=== PATIENT | female | born 1955 | race Caucasian/White ===

== ENCOUNTER 2017-12-23 17:20 | Inpatient (IN) | payer BC ==
[~2017-12-23] VITALS: Ht 172.7 cm; Wt 63.5 kg
[2017-12-23 17:20] VITALS: BP_SYST 123
[~2017-12-23 17:20] MED LIST: BUPIVACAINE /PF 0.75% 10 ML VIAL INJ ONE; CEFAZOLIN 2 GM IVPB PREMIX 50 ML IV ONE; FUROSEMIDE 20 MG/2 ML VIAL IVP ONE; LIDOCAINE 1% 10 MG/ML, 20 ML MDV INJ ONE; MIDAZOLAM HCL 5 MG/5 ML VIAL IVP ONE; ONDANSETRON HCL 4 MG/2 ML VIAL IVP ONE; PROPOFOL 200MG/ 20ML VIAL (DIPRIVAN) IV ONE
[2017-12-23] MEDS ORDERED: NACL 0.9% 1,000 ML IV ONE (17:22)
[2017-12-23] MEDS ORDERED: MORPHINE 4 MG/ML INJ. SYRINGE IVP ONE (17:30)
[2017-12-23] MEDS ORDERED: ONDANSETRON HCL 4 MG/2 ML VIAL IVP ONE (17:30)
[2017-12-23 17:47] LABS: BASOPHILS % (AUTO) 0.5 % (0.0-2.0); EOSINOPHILS # (AUTO) 0.1 K/uL (0.0-0.4); EOSINOPHILS % (AUTO) 1.5 % (0.0-4.0); HEMATOCRIT 39.4 % (36-48); HEMOGLOBIN 12.5 g/dL (12.0-16.0); LYMPHOCYTES # (AUTO) 2.3 K/uL (1.0-5.5); LYMPHOCYTES % (AUTO) 26.6 % (20.5-51.5); MEAN CORPUSCULAR HEMOGLOBIN 25 pg (27-31); MEAN CORPUSCULAR HGB CONC 32 % (32-36); MEAN CORPUSCULAR VOLUME 80 fL (79.0-98.0); MONOCYTES # (AUTO) 0.8 K/uL (0.0-1.0); MONOCYTES % (AUTO) 9.2 % (1.7-9.3); NEUTROPHILS # (AUTO) 5.3 K/uL (1.8-7.7); NEUTROPHILS % (AUTO) 62.2 % (40.0-70.0); PLATELET COUNT (AUTO) 383 K/uL (130-430); RED BLOOD CELL COUNT(AUTO) 4.94 MIL/uL (4.2-6.2); WHITE BLOOD COUNT (AUTO) 8.5 K/uL (4.8-10.8)
[2017-12-23 18:02] LABS: CALCIUM 9.1 mg/dL (8.4-11.0); CREATININE 1.02 mg/dL (0.55-1.30); POTASSIUM 3.9 mmol/L (3.5-5.1)
[2017-12-23 18:07] LABS: ALBUMIN 3.7 g/dL (3.4-4.8); TOTAL BILIRUBIN 0.4 mg/dL (0.0-1.0)
[2017-12-23 18:26] LABS: PROTHROMBIN TIME 10.4 SECS (9.5-12.5)
[2017-12-23 18:26] LABS: BILIRUBIN,URINE NEGATIVE (NEGATIVE); CLARITY/URINE CLEAR (CLEAR); COLOR,URINE YELLOW (YELLOW); GLUCOSE,URINE NEGATIVE (NEGATIVE); KETONES,URINE TRACE (NEGATIVE); LEUKOCYTE ESTERASE ,URINE NEGATIVE (NEGATIVE); NITRITE, URINE NEGATIVE (NEGATIVE); PH,URINE 5.5 (5.0-8.0); PROTEIN URINE NEGATIVE (NEGATIVE); UROBILINOGEN,URINE 0.2 (0.2-1.0)
[2017-12-23 18:29] LABS: BLOOD, URINE TRACE (NEGATIVE)
[2017-12-23 18:47] LABS: BACTERIA,URINE FEW /HPF (None Seen); MUCUS,URINE 3+ /LPF (None Seen); WBC,URINE 0-3 /HPF (0-3)
[2017-12-23] MEDS ORDERED: ONDANSETRON HCL 4 MG/2 ML VIAL IVP PRN (20:30)
[2017-12-23] MEDS ORDERED: ACETAMINOPHEN 325 MG TABLET PO PRN (20:30)
[2017-12-23 20:55] VITALS: BP_SYST 139
[2017-12-23] MEDS: MORPHINE 4 MG/ML INJ. SYRINGE IVP PRN (21:02)
[2017-12-23] MEDS ORDERED: DIGO-31 PO (21:17)
[2017-12-23] MEDS ORDERED: LISI-600 PO (21:17)
[2017-12-23] MEDS ORDERED: APIX5TAB4 PO (21:17)
[2017-12-23] MEDS ORDERED: METO50TA7 PO (21:17)
[2017-12-23] MEDS ORDERED: MORPHINE 4 MG/ML INJ. SYRINGE IVP SCH (22:00)
[2017-12-24] VITALS (12 sets, daily range): BP systolic 112–134
[2017-12-24] MEDS: MORPHINE 4 MG/ML INJ. SYRINGE IVP PRN ×4 (02:52→12:40)
[2017-12-24 06:20] LABS: BASOPHILS % (AUTO) 0.4 % (0.0-2.0); EOSINOPHILS % (AUTO) 0.3 % (0.0-4.0); HEMATOCRIT 35.1 % (36-48); HEMOGLOBIN 11.9 g/dL (12.0-16.0); LYMPHOCYTES # (AUTO) 1.5 K/uL (1.0-5.5); LYMPHOCYTES % (AUTO) 14.2 % (20.5-51.5); MEAN CORPUSCULAR HEMOGLOBIN 27 pg (27-31); MEAN CORPUSCULAR HGB CONC 34 % (32-36); MEAN CORPUSCULAR VOLUME 80 fL (79.0-98.0); MONOCYTES # (AUTO) 0.7 K/uL (0.0-1.0); MONOCYTES % (AUTO) 6.8 % (1.7-9.3); NEUTROPHILS # (AUTO) 8.7 K/uL (1.8-7.7); NEUTROPHILS % (AUTO) 78.3 % (40.0-70.0); PLATELET COUNT (AUTO) 323 K/uL (130-430); RED CELL DISTRIBUTION WIDTH 13.2 % (9.0-15.0)
[2017-12-24 06:57] LABS: ALBUMIN 3.1 g/dL (3.4-4.8); CALCIUM 8.4 mg/dL (8.4-11.0); CREATININE 1.07 mg/dL (0.55-1.30); FREE T4 (FREE THYROXINE) 0.6 ng/dL (0.6-1.6); POTASSIUM 4.4 mmol/L (3.5-5.1); THYROID STIMULATING HORMONE 0.68 uIu/mL (0.34-4.82); TOTAL BILIRUBIN 0.4 mg/dL (0.0-1.0)
[2017-12-24 07:01] LABS: WHITE BLOOD COUNT (AUTO) 10.9 K/uL (4.8-10.8)
[2017-12-24] MEDS: DIGOXIN 0.125 MG TABLET PO SCH (09:04)
[2017-12-24] MEDS: LISINOPRIL 20 MG TABLET PO SCH (09:04)
[2017-12-24] MEDS: METOPROLOL SUCCINATE 50 MG TAB.SR.24H (TOPROL XL) PO SCH (09:04)
[2017-12-24] MEDS ORDERED: POLYMYXIN 500,000/BACIT.10,000 UNITS in NS IRR 1 L IR ONE (14:49)
[2017-12-24] MEDS ORDERED: LR 1,000 ML IV SCH (16:29)
[2017-12-24] MEDS ORDERED: METOCLOPRAMIDE HCL 10 MG/2 ML VIAL IVP PRN (16:30)
[2017-12-24] MEDS ORDERED: MORPHINE 4 MG/ML INJ. SYRINGE IVP PRN ×3 (16:30)
[2017-12-24] MEDS ORDERED: DIPHENHYDRAMINE INJ 50 MG/ML VIAL IVP PRN ×2 (18:00→18:15)
[2017-12-24] MEDS ORDERED: ONDANSETRON HCL 4 MG/2 ML VIAL IVP PRN (18:00)
[2017-12-24] MEDS ORDERED: DIPHENHYDRAMINE HCL 25 MG CAPSULE PO PRN ×2 (18:00→18:15)
[2017-12-24] MEDS ORDERED: MILK OF MAGNESIA 30 ML UDC PO PRN (18:15)
[2017-12-24] MEDS: ONDANSETRON HCL 4 MG/2 ML VIAL IVP PRN (19:33)
[2017-12-24] MEDS: KETOROLAC TROMETHAMINE 15 MG VIAL IVP SCH ×2 (19:44→23:45)
[2017-12-24] MEDS ORDERED: KETOROLAC TROMETHAMINE 15 MG VIAL ONE (19:45)
[2017-12-24] MEDS: SENNOSIDES 8.6 MG TABLET PO SCH (20:25)
[2017-12-24] MEDS: D5LR 1,000 ML IV SCH (23:44)
[2017-12-25] VITALS (16 sets, daily range): BP systolic 90–132
[2017-12-25] MEDS: ONDANSETRON HCL 4 MG/2 ML VIAL IVP PRN ×3 (03:08→23:32)
[2017-12-25] MEDS: MORPHINE 2 MG/ML INJ. SYRINGE IVP PRN ×2 (04:23→23:32)
[2017-12-25] MEDS: ACETAMINOPHEN 325 MG TABLET PO PRN ×3 (05:04→17:41)
[2017-12-25] MEDS: KETOROLAC TROMETHAMINE 15 MG VIAL IVP SCH (06:48)
[2017-12-25 06:52] LABS: EOSINOPHILS # (AUTO) 0.1 K/uL (0.0-0.4); EOSINOPHILS % (AUTO) 0.9 % (0.0-4.0); HEMATOCRIT 35.4 % (36-48); HEMOGLOBIN 11.6 g/dL (12.0-16.0); LYMPHOCYTES # (AUTO) 0.7 K/uL (1.0-5.5); LYMPHOCYTES % (AUTO) 6.5 % (20.5-51.5); MEAN CORPUSCULAR HEMOGLOBIN 26 pg (27-31); MEAN CORPUSCULAR HGB CONC 33 % (32-36); MEAN CORPUSCULAR VOLUME 79 fL (79.0-98.0); MONOCYTES # (AUTO) 1.1 K/uL (0.0-1.0); MONOCYTES % (AUTO) 9.9 % (1.7-9.3); NEUTROPHILS # (AUTO) 9.5 K/uL (1.8-7.7); NEUTROPHILS % (AUTO) 82.7 % (40.0-70.0); PLATELET COUNT (AUTO) 244 K/uL (130-430); RED BLOOD CELL COUNT(AUTO) 4.47 MIL/uL (4.2-6.2); RED CELL DISTRIBUTION WIDTH 13.4 % (9.0-15.0); WHITE BLOOD COUNT (AUTO) 11.4 K/uL (4.8-10.8)
[2017-12-25 06:53] LABS: CALCIUM 8.5 mg/dL (8.4-11.0); CREATININE 1.19 mg/dL (0.55-1.30); POTASSIUM 4.4 mmol/L (3.5-5.1)
[2017-12-25] MEDS: D5LR 1,000 ML IV SCH ×2 (08:35→13:47)
[2017-12-25] MEDS: LISINOPRIL 20 MG TABLET PO SCH (09:00)
[2017-12-25] MEDS: METOPROLOL SUCCINATE 50 MG TAB.SR.24H (TOPROL XL) PO SCH (09:00)
[2017-12-25] MEDS: ENOXAPARIN SODIUM 40 MG/0.4 ML SYRINGE SUBCUT SCH (10:06)
[2017-12-25] MEDS: DIGOXIN 0.125 MG TABLET PO SCH (10:06)
[2017-12-25] MEDS: PANTOPRAZOLE SODIUM 40 MG TAB PO SCH (10:06)
[2017-12-25] MEDS ORDERED: BISACODYL 5 MG TABLET.DR (DULCOLAX) PO PRN (19:00)
[2017-12-25] MEDS: NACL 0.9% 1,000 ML IV SCH (20:40)
[2017-12-25] MEDS: DOCUSATE SODIUM 250 MG CAPSULE PO SCH (20:40)
[2017-12-25] MEDS: SENNOSIDES 8.6 MG TABLET PO SCH (20:40)
[2017-12-26 00:32] VITALS: BP_SYST 128
[2017-12-26] MEDS ORDERED: METOPROLOL SUCCINATE 50 MG TAB.SR.24H (TOPROL XL) PO ONE (03:30)
[2017-12-26] MEDS ORDERED: DILTIAZEM HCL 25 MG/5 ML VIAL IVP ONE (03:30)
[2017-12-26] MEDS: MORPHINE 2 MG/ML INJ. SYRINGE IVP PRN (03:55)
[2017-12-26 06:39] LABS: CALCIUM 8.1 mg/dL (8.4-11.0); CREATININE 0.9 mg/dL (0.55-1.30); POTASSIUM 4.1 mmol/L (3.5-5.1)
[2017-12-26 06:42] LABS: BASOPHILS % (AUTO) 0.2 % (0.0-2.0); EOSINOPHILS # (AUTO) 0.1 K/uL (0.0-0.4); EOSINOPHILS % (AUTO) 1.1 % (0.0-4.0); HEMATOCRIT 28.9 % (36-48); HEMOGLOBIN 9.6 g/dL (12.0-16.0); LYMPHOCYTES % (AUTO) 9.6 % (20.5-51.5); MEAN CORPUSCULAR HEMOGLOBIN 27 pg (27-31); MEAN CORPUSCULAR HGB CONC 33 % (32-36); MEAN CORPUSCULAR VOLUME 80 fL (79.0-98.0); MONOCYTES # (AUTO) 0.9 K/uL (0.0-1.0); MONOCYTES % (AUTO) 8.6 % (1.7-9.3); NEUTROPHILS # (AUTO) 8.7 K/uL (1.8-7.7); NEUTROPHILS % (AUTO) 80.5 % (40.0-70.0); PLATELET COUNT (AUTO) 226 K/uL (130-430); RED CELL DISTRIBUTION WIDTH 12.9 % (9.0-15.0); WHITE BLOOD COUNT (AUTO) 10.7 K/uL (4.8-10.8)
[2017-12-26] MEDS: NACL 0.9% 1,000 ML IV SCH ×2 (07:15→17:21)
[2017-12-26 08:00] VITALS: BP_SYST 120
[2017-12-26] MEDS: DOCUSATE SODIUM 250 MG CAPSULE PO SCH ×2 (08:58→21:01)
[2017-12-26] MEDS: DIGOXIN 0.125 MG TABLET PO SCH (08:59)
[2017-12-26] MEDS: LISINOPRIL 20 MG TABLET PO SCH (08:59)
[2017-12-26] MEDS: PANTOPRAZOLE SODIUM 40 MG TAB PO SCH (08:59)
[2017-12-26] MEDS: ENOXAPARIN SODIUM 40 MG/0.4 ML SYRINGE SUBCUT SCH (09:00)
[2017-12-26] MEDS: METOPROLOL SUCCINATE 50 MG TAB.SR.24H (TOPROL XL) PO SCH (09:00)
[2017-12-26] MEDS: ONDANSETRON HCL 4 MG/2 ML VIAL IVP PRN (10:57)
[2017-12-26] MEDS: MORPHINE 4 MG/ML INJ. SYRINGE IVP PRN (10:57)
[2017-12-26] MEDS ORDERED: CHOLECALCIFEROL (VITAMIN D3) 2,000 UNIT TABLET PO ONE (12:15)
[2017-12-26] MEDS ORDERED: MULTIVITS,CA,MINERALS/IRON/FA 1 TABLET PO ONE (12:15)
[2017-12-26 12:22] VITALS: BP_SYST 129
[2017-12-26 16:28] VITALS: BP_SYST 126
[2017-12-26 19:45] VITALS: BP_SYST 123
[2017-12-26] MEDS: SENNOSIDES 8.6 MG TABLET PO SCH (21:01)
[2017-12-26] MEDS: MULTIVITS,CA,MINERALS/IRON/FA 1 TABLET PO SCH (21:01)
[2017-12-27 00:18] VITALS: BP_SYST 140
[2017-12-27] MEDS: ONDANSETRON HCL 4 MG/2 ML VIAL IVP PRN (01:34)
[2017-12-27] MEDS: MORPHINE 2 MG/ML INJ. SYRINGE IVP PRN ×3 (01:38→20:32)
[2017-12-27 06:29] LABS: BASOPHILS % (AUTO) 0.2 % (0.0-2.0); EOSINOPHILS # (AUTO) 0.3 K/uL (0.0-0.4); EOSINOPHILS % (AUTO) 2.6 % (0.0-4.0); HEMOGLOBIN 9.7 g/dL (12.0-16.0); LYMPHOCYTES # (AUTO) 1.5 K/uL (1.0-5.5); MEAN CORPUSCULAR HEMOGLOBIN 27 pg (27-31); MEAN CORPUSCULAR HGB CONC 33 % (32-36); MEAN CORPUSCULAR VOLUME 80 fL (79.0-98.0); MONOCYTES # (AUTO) 0.9 K/uL (0.0-1.0); NEUTROPHILS # (AUTO) 8.2 K/uL (1.8-7.7); NEUTROPHILS % (AUTO) 75.2 % (40.0-70.0); PLATELET COUNT (AUTO) 262 K/uL (130-430); RED BLOOD CELL COUNT(AUTO) 3.62 MIL/uL (4.2-6.2); RED CELL DISTRIBUTION WIDTH 13.2 % (9.0-15.0); WHITE BLOOD COUNT (AUTO) 10.9 K/uL (4.8-10.8)
[2017-12-27 06:35] LABS: CALCIUM 8.7 mg/dL (8.4-11.0); CREATININE 0.86 mg/dL (0.55-1.30); POTASSIUM 4.2 mmol/L (3.5-5.1)
[2017-12-27 08:30] VITALS: BP_SYST 118
[2017-12-27] MEDS: PANTOPRAZOLE SODIUM 40 MG TAB PO SCH (09:10)
[2017-12-27] MEDS: CHOLECALCIFEROL (VITAMIN D3) 2,000 UNIT TABLET PO SCH (09:11)
[2017-12-27] MEDS: MULTIVITS,CA,MINERALS/IRON/FA 1 TABLET PO SCH ×2 (09:11→20:28)
[2017-12-27] MEDS: DOCUSATE SODIUM 250 MG CAPSULE PO SCH ×2 (09:13→20:28)
[2017-12-27] MEDS: DIGOXIN 0.125 MG TABLET PO SCH (09:13)
[2017-12-27] MEDS: METOPROLOL SUCCINATE 50 MG TAB.SR.24H (TOPROL XL) PO SCH (09:14)
[2017-12-27] MEDS: LISINOPRIL 20 MG TABLET PO SCH (09:14)
[2017-12-27] MEDS: ENOXAPARIN SODIUM 40 MG/0.4 ML SYRINGE SUBCUT SCH (09:17)
[2017-12-27 09:51] VITALS: BP_SYST 118
[2017-12-27] MEDS ORDERED: MILK OF MAGNESIA 30 ML UDC PO PRN (10:00)
[2017-12-27] MEDS ORDERED: BISACODYL 5 MG TABLET.DR (DULCOLAX) PO ONE (10:00)
[2017-12-27 12:08] VITALS: BP_SYST 111
[2017-12-27 16:41] VITALS: BP_SYST 123
[2017-12-27 19:55] VITALS: BP_SYST 121
[2017-12-27] MEDS: SENNOSIDES 8.6 MG TABLET PO SCH (20:28)
[2017-12-28 00:19] VITALS: BP_SYST 116
[2017-12-28] MEDS: MORPHINE 2 MG/ML INJ. SYRINGE IVP PRN ×3 (01:40→11:23)
[2017-12-28 06:58] LABS: BASOPHILS # (AUTO) 0.1 K/uL (0.0-0.2); BASOPHILS % (AUTO) 0.7 % (0.0-2.0); EOSINOPHILS # (AUTO) 0.3 K/uL (0.0-0.4); EOSINOPHILS % (AUTO) 3.6 % (0.0-4.0); HEMOGLOBIN 9.1 g/dL (12.0-16.0); LYMPHOCYTES # (AUTO) 1.2 K/uL (1.0-5.5); LYMPHOCYTES % (AUTO) 14.4 % (20.5-51.5); MEAN CORPUSCULAR HEMOGLOBIN 27 pg (27-31); MEAN CORPUSCULAR HGB CONC 34 % (32-36); MEAN CORPUSCULAR VOLUME 80 fL (79.0-98.0); MONOCYTES # (AUTO) 0.7 K/uL (0.0-1.0); MONOCYTES % (AUTO) 8.7 % (1.7-9.3); NEUTROPHILS # (AUTO) 6.3 K/uL (1.8-7.7); NEUTROPHILS % (AUTO) 72.6 % (40.0-70.0); PLATELET COUNT (AUTO) 257 K/uL (130-430); RED BLOOD CELL COUNT(AUTO) 3.38 MIL/uL (4.2-6.2); RED CELL DISTRIBUTION WIDTH 12.9 % (9.0-15.0); WHITE BLOOD COUNT (AUTO) 8.6 K/uL (4.8-10.8)
[2017-12-28 07:13] LABS: CALCIUM 8.4 mg/dL (8.4-11.0); CREATININE 0.81 mg/dL (0.55-1.30); POTASSIUM 3.7 mmol/L (3.5-5.1)
[2017-12-28] MEDS: DIGOXIN 0.125 MG TABLET PO SCH (09:12)
[2017-12-28] MEDS: CHOLECALCIFEROL (VITAMIN D3) 2,000 UNIT TABLET PO SCH (09:13)
[2017-12-28] MEDS: LISINOPRIL 20 MG TABLET PO SCH (09:13)
[2017-12-28] MEDS: METOPROLOL SUCCINATE 50 MG TAB.SR.24H (TOPROL XL) PO SCH (09:13)
[2017-12-28] MEDS: DOCUSATE SODIUM 250 MG CAPSULE PO SCH ×2 (09:14→21:00)
[2017-12-28] MEDS: PANTOPRAZOLE SODIUM 40 MG TAB PO SCH (09:14)
[2017-12-28] MEDS: MULTIVITS,CA,MINERALS/IRON/FA 1 TABLET PO SCH ×2 (09:14→21:21)
[2017-12-28] MEDS: ENOXAPARIN SODIUM 40 MG/0.4 ML SYRINGE SUBCUT SCH (09:18)
[2017-12-28] MEDS ORDERED: DIGOXIN 0.5 MG/2 ML AMP IVP ONE (12:00)
[2017-12-28 12:36] VITALS: BP_SYST 100
[2017-12-28 16:03] VITALS: BP_SYST 110
[2017-12-28] MEDS: ACETAMINOPHEN 325 MG TABLET PO PRN (16:14)
[2017-12-28 19:55] VITALS: BP_SYST 96
[2017-12-28] MEDS: SENNOSIDES 8.6 MG TABLET PO SCH (21:00)
[2017-12-29] VITALS: BP_SYST 108
[2017-12-29] MEDS: MORPHINE 2 MG/ML INJ. SYRINGE IVP PRN (02:03)
[2017-12-29 06:33] LABS: BASOPHILS % (AUTO) 0.5 % (0.0-2.0); EOSINOPHILS # (AUTO) 0.4 K/uL (0.0-0.4); EOSINOPHILS % (AUTO) 5.3 % (0.0-4.0); HEMATOCRIT 29.2 % (36-48); HEMOGLOBIN 9.2 g/dL (12.0-16.0); LYMPHOCYTES # (AUTO) 1.5 K/uL (1.0-5.5); LYMPHOCYTES % (AUTO) 20.5 % (20.5-51.5); MEAN CORPUSCULAR HEMOGLOBIN 25 pg (27-31); MEAN CORPUSCULAR HGB CONC 31 % (32-36); MEAN CORPUSCULAR VOLUME 81 fL (79.0-98.0); MONOCYTES # (AUTO) 0.7 K/uL (0.0-1.0); MONOCYTES % (AUTO) 9.3 % (1.7-9.3); NEUTROPHILS # (AUTO) 4.8 K/uL (1.8-7.7); NEUTROPHILS % (AUTO) 64.4 % (40.0-70.0); PLATELET COUNT (AUTO) 360 K/uL (130-430); RED BLOOD CELL COUNT(AUTO) 3.63 MIL/uL (4.2-6.2); RED CELL DISTRIBUTION WIDTH 12.8 % (9.0-15.0); WHITE BLOOD COUNT (AUTO) 7.4 K/uL (4.8-10.8)
[2017-12-29 06:37] LABS: CALCIUM 8.7 mg/dL (8.4-11.0); CREATININE 0.89 mg/dL (0.55-1.30); POTASSIUM 3.5 mmol/L (3.5-5.1)
[2017-12-29 08:42] VITALS: BP_SYST 108
[2017-12-29] MEDS: CHOLECALCIFEROL (VITAMIN D3) 2,000 UNIT TABLET PO SCH (08:46)
[2017-12-29] MEDS: LISINOPRIL 20 MG TABLET PO SCH (08:47)
[2017-12-29] MEDS: DOCUSATE SODIUM 250 MG CAPSULE PO SCH ×2 (08:47→20:10)
[2017-12-29] MEDS: PANTOPRAZOLE SODIUM 40 MG TAB PO SCH (08:47)
[2017-12-29] MEDS: MULTIVITS,CA,MINERALS/IRON/FA 1 TABLET PO SCH ×2 (08:47→20:10)
[2017-12-29] MEDS: METOPROLOL SUCCINATE 50 MG TAB.SR.24H (TOPROL XL) PO SCH (08:48)
[2017-12-29] MEDS: DIGOXIN 0.5 MG/2 ML AMP IVP SCH (08:48)
[2017-12-29] MEDS: ENOXAPARIN SODIUM 40 MG/0.4 ML SYRINGE SUBCUT SCH (08:51)
[2017-12-29 10:08] LABS: RETICULOCYTE COUNT 2.3 % (0.5-1.5)
[2017-12-29 12:25] VITALS: BP_SYST 124
[2017-12-29] MEDS: traMADol HCL HCL 50 MG TABLET (ULTRAM) PO PRN (13:11)
[2017-12-29] MEDS: ACETAMINOPHEN 325 MG TABLET PO PRN (16:06)
[2017-12-29 16:20] VITALS: BP_SYST 110
[2017-12-29 19:05] VITALS: BP_SYST 106
[2017-12-29] MEDS: SENNOSIDES 8.6 MG TABLET PO SCH (20:12)
[2017-12-30] VITALS: BP_SYST 124
[2017-12-30] MEDS: ONDANSETRON HCL 4 MG/2 ML VIAL IVP PRN (02:44)
[2017-12-30 08:00] VITALS: BP_SYST 118
[2017-12-30] MEDS: CHOLECALCIFEROL (VITAMIN D3) 2,000 UNIT TABLET PO SCH (09:24)
[2017-12-30] MEDS: LISINOPRIL 20 MG TABLET PO SCH (09:24)
[2017-12-30] MEDS: DIGOXIN 0.5 MG/2 ML AMP IVP SCH (09:24)
[2017-12-30] MEDS: MULTIVITS,CA,MINERALS/IRON/FA 1 TABLET PO SCH ×2 (09:24→21:27)
[2017-12-30] MEDS: PANTOPRAZOLE SODIUM 40 MG TAB PO SCH (09:24)
[2017-12-30] MEDS: DOCUSATE SODIUM 250 MG CAPSULE PO SCH ×2 (09:24→21:27)
[2017-12-30] MEDS: METOPROLOL SUCCINATE 50 MG TAB.SR.24H (TOPROL XL) PO SCH (09:25)
[2017-12-30] MEDS: ENOXAPARIN SODIUM 40 MG/0.4 ML SYRINGE SUBCUT SCH (09:29)
[2017-12-30 12:02] VITALS: BP_SYST 127
[2017-12-30 13:53] VITALS: BP_SYST 127
[2017-12-30] MEDS: traMADol HCL HCL 50 MG TABLET (ULTRAM) PO PRN (14:31)
[2017-12-30 16:12] VITALS: BP_SYST 131
[2017-12-30 20:20] VITALS: BP_SYST 134
[2017-12-30] MEDS ORDERED: APIXABAN 2.5 MG TABLET PO SCH (21:00)
[2017-12-30] MEDS: SENNOSIDES 8.6 MG TABLET PO SCH (21:27)
[2017-12-30] MEDS: APIXABAN 2.5 MG TABLET PO SCH (21:29)
[2017-12-31 00:28] VITALS: BP_SYST 123
[2017-12-31 06:19] LABS: BASOPHILS % (AUTO) 0.5 % (0.0-2.0); EOSINOPHILS # (AUTO) 0.3 K/uL (0.0-0.4); EOSINOPHILS % (AUTO) 3.5 % (0.0-4.0); HEMATOCRIT 29.9 % (36-48); LYMPHOCYTES # (AUTO) 1.5 K/uL (1.0-5.5); LYMPHOCYTES % (AUTO) 18.7 % (20.5-51.5); MEAN CORPUSCULAR HEMOGLOBIN 27 pg (27-31); MEAN CORPUSCULAR HGB CONC 34 % (32-36); MEAN CORPUSCULAR VOLUME 80 fL (79.0-98.0); MONOCYTES # (AUTO) 0.8 K/uL (0.0-1.0); MONOCYTES % (AUTO) 9.2 % (1.7-9.3); NEUTROPHILS # (AUTO) 5.6 K/uL (1.8-7.7); NEUTROPHILS % (AUTO) 68.1 % (40.0-70.0); PLATELET COUNT (AUTO) 483 K/uL (130-430); RED BLOOD CELL COUNT(AUTO) 3.74 MIL/uL (4.2-6.2); RED CELL DISTRIBUTION WIDTH 12.9 % (9.0-15.0); WHITE BLOOD COUNT (AUTO) 8.2 K/uL (4.8-10.8)
[2017-12-31 06:32] LABS: CREATININE 0.78 mg/dL (0.55-1.30); POTASSIUM 4.1 mmol/L (3.5-5.1)
[2017-12-31 08:03] VITALS: BP_SYST 122
[2017-12-31] MEDS: DOCUSATE SODIUM 250 MG CAPSULE PO SCH ×2 (09:00→21:00)
[2017-12-31] MEDS: PANTOPRAZOLE SODIUM 40 MG TAB PO SCH (09:09)
[2017-12-31] MEDS: METOPROLOL SUCCINATE 50 MG TAB.SR.24H (TOPROL XL) PO SCH (09:09)
[2017-12-31] MEDS: MULTIVITS,CA,MINERALS/IRON/FA 1 TABLET PO SCH ×2 (09:10→21:36)
[2017-12-31] MEDS: CHOLECALCIFEROL (VITAMIN D3) 2,000 UNIT TABLET PO SCH (09:10)
[2017-12-31] MEDS: LISINOPRIL 20 MG TABLET PO SCH (09:10)
[2017-12-31] MEDS: APIXABAN 2.5 MG TABLET PO SCH ×2 (09:11→21:39)
[2017-12-31] MEDS: traMADol HCL HCL 50 MG TABLET (ULTRAM) PO PRN ×2 (09:12→21:59)
[2017-12-31 12:50] VITALS: BP_SYST 130
[2017-12-31] MEDS ORDERED: DIGOXIN 0.25 MG TABLET PO ONE (16:45)
[2017-12-31] MEDS ORDERED: DIGOXIN 0.5 MG/2 ML AMP IVP ONE (16:45)
[2017-12-31 16:52] VITALS: BP_SYST 130
[2017-12-31] MEDS: SENNOSIDES 8.6 MG TABLET PO SCH (21:00)
[2018-01-01 00:34] VITALS: BP_SYST 140
[2018-01-01 06:35] LABS: CALCIUM 8.9 mg/dL (8.4-11.0); CREATININE 0.84 mg/dL (0.55-1.30); DIGOXIN 1.4 ng/mL (0.80-2.00); POTASSIUM 4.3 mmol/L (3.5-5.1)
[2018-01-01 06:39] LABS: BASOPHILS # (AUTO) 0.1 K/uL (0.0-0.2); BASOPHILS % (AUTO) 0.6 % (0.0-2.0); EOSINOPHILS # (AUTO) 0.3 K/uL (0.0-0.4); EOSINOPHILS % (AUTO) 3.7 % (0.0-4.0); HEMATOCRIT 28.1 % (36-48); HEMOGLOBIN 9.4 g/dL (12.0-16.0); LYMPHOCYTES # (AUTO) 1.6 K/uL (1.0-5.5); LYMPHOCYTES % (AUTO) 17.9 % (20.5-51.5); MEAN CORPUSCULAR HEMOGLOBIN 27 pg (27-31); MEAN CORPUSCULAR HGB CONC 34 % (32-36); MEAN CORPUSCULAR VOLUME 79 fL (79.0-98.0); MONOCYTES # (AUTO) 0.9 K/uL (0.0-1.0); MONOCYTES % (AUTO) 9.5 % (1.7-9.3); NEUTROPHILS # (AUTO) 6.2 K/uL (1.8-7.7); NEUTROPHILS % (AUTO) 68.3 % (40.0-70.0); PLATELET COUNT (AUTO) 468 K/uL (130-430); RED BLOOD CELL COUNT(AUTO) 3.55 MIL/uL (4.2-6.2); WHITE BLOOD COUNT (AUTO) 9.1 K/uL (4.8-10.8)
[2018-01-01 07:42] VITALS: BP_SYST 142
[2018-01-01] MEDS ORDERED: DIGOXIN 0.25 MG TABLET PO SCH (09:00)
[2018-01-01] MEDS: DOCUSATE SODIUM 250 MG CAPSULE PO SCH (09:00)
[2018-01-01] MEDS ORDERED: DIGOXIN 0.5 MG/2 ML AMP IVP SCH (09:00)
[2018-01-01] MEDS: MULTIVITS,CA,MINERALS/IRON/FA 1 TABLET PO SCH (09:00)
[2018-01-01] MEDS: APIXABAN 2.5 MG TABLET PO SCH (09:18)
[2018-01-01] MEDS: PANTOPRAZOLE SODIUM 40 MG TAB PO SCH (09:20)
[2018-01-01] MEDS: LISINOPRIL 20 MG TABLET PO SCH (09:20)
[2018-01-01] MEDS: traMADol HCL HCL 50 MG TABLET (ULTRAM) PO PRN (09:21)
[2018-01-01] MEDS: METOPROLOL SUCCINATE 50 MG TAB.SR.24H (TOPROL XL) PO SCH (09:21)
[2018-01-01] MEDS: CHOLECALCIFEROL (VITAMIN D3) 2,000 UNIT TABLET PO SCH (09:21)
[2018-01-01 12:19] VITALS: BP_SYST 127
[2018-01-01] MEDS ORDERED: TRAM50TA2 PO ×2 (14:36→14:37)
[2018-01-01] MEDS ORDERED: MULT-1117 (14:38)
[2018-01-01] MEDS ORDERED: VITD2000 PO ×2 (14:38→14:39)
[2018-01-01 14:46] VITALS: BP_SYST 127
== END 2018-01-01 15:15 | disposition home or self-care (01) | DRG 470 ==
LOC: SED 17:20 → STU 20:24 → SIC 12-24 17:35 → STU 12-25 14:33 → SMU 12-29 16:50
PROVIDERS: ADMIT Internal Medicine; ATTEND Internal Medicine
PROC: 0SRS01Z Replacement of Left Hip Joint, Femoral Surface with Metal Synthetic Substitute, Open Approach (ICD-10-PCS; principal; 2017-12-24 15:00)
DX: S72.002A Fracture of unspecified part of neck of left femur, initial encounter for closed fracture (principal); I50.22 Chronic systolic (congestive) heart failure; I48.1 Persistent atrial fibrillation; I42.9 Cardiomyopathy, unspecified; D68.69 Other thrombophilia; D62 Acute posthemorrhagic anemia; E44.1 Mild protein-calorie malnutrition; E87.1 Hypo-osmolality and hyponatremia; I11.0 Hypertensive heart disease with heart failure; M19.90 Unspecified osteoarthritis, unspecified site; S50.811A Abrasion of right forearm, initial encounter; S60.811A Abrasion of right wrist, initial encounter; G89.29 Other chronic pain; M81.0 Age-related osteoporosis without current pathological fracture; W01.0XXA Fall on same level from slipping, tripping and stumbling without subsequent striking against object, initial encounter; Y93.89 Activity, other specified; Y92.39 Other specified sports and athletic area as the place of occurrence of the external cause; Y99.8 Other external cause status; Z88.1 Allergy status to other antibiotic agents; Z88.5 Allergy status to narcotic agent; Z79.899 Other long term (current) drug therapy; Z79.01 Long term (current) use of anticoagulants; Z68.21 Body mass index [BMI] 21.0-21.9, adult; Z82.49 Family history of ischemic heart disease and other diseases of the circulatory system; Z87.891 Personal history of nicotine dependence
CPT/HCPCS: 36415; 71045; 72170-TC; 73502; 73552; 80048; 80053; 80162-TC; 81000-TC; 83690-TC; 84439; 84443-TC; 85025; 85044-TC; 85610-TC; 85730-TC; 86886; 86900; 86901; 87081; 88305; 88311; 93005; 94010; 96361; 96374; 96375; 97110-GP; 97116-GP; 97530-GP; 99285; C1776; J0690; J1160; J1650; J1885; J1940; J2001; J2250; J2270; J2405; J2704; J2765; J3490; J7030; J7120